=== PATIENT | female | born 1985 | race Caucasian/White ===

== ENCOUNTER 2020-01-27 16:55 | Inpatient (IN) | payer OTHER, MEDICAID ==
[~2020-01-27] VITALS: Ht 152.4 cm; Wt 71.7 kg
[2020-01-27] MEDS ORDERED: ONDANSETRON HCL 4MG/2ML INJ IV STA (17:00)
[2020-01-27 17:42] LABS: HEMATOCRIT. 22.3 % (36.0-48.0); HEMOGLOBIN. 7.4 g/dL (12.0-16.0); MEAN CORPUSCULAR HEMOGLOBIN 31.5 pg (28.0-32.0); MEAN CORPUSCULAR VOLUME 95.8 fL (81.0-99.0); MEAN PLATELET VOLUME 7.9 fl (7.4-10.4); PLATELET 229 x1000/uL (130-400); RED BLOOD CELL COUNT 2.33 mill/uL (4.2-5.4)
[2020-01-27 17:46] LABS: CHLORIDE 100 mEq/L (98-107)
[2020-01-27 17:53] LABS: INR 1.5; PROTHROMBIN TIME 15.1 sec (9.6-11.0)
[2020-01-27 17:56] LABS: PLATELET ESTIMATE NORMAL
[2020-01-27 17:57] LABS: HCG SCREEN NEGATIVE
[2020-01-27] MEDS ORDERED: SODIUM BICARBONATE 8.4% 1 MEQ/ML 50ML SYR IV ONE (18:15)
[2020-01-27] MEDS ORDERED: DEXTROSE 50% WATER 50ML SYRINGE IV ONE (18:15)
[2020-01-27] MEDS ORDERED: INSULIN REGULAR (HUMULIN R) 300UNITS/3ML IV ONE (18:15)
[2020-01-27] MEDS ORDERED: CALCIUM GLUCONATE 1,000 MG in DEXT 5% WATER 100 ML IV ONE (18:15)
[2020-01-27] MEDS ORDERED: HYDRALAZINE 20MG/ML VIAL IV ONE (18:45)
[2020-01-27] MEDS ORDERED: ALBUTEROL (0.083%) 2.5MG/3ML NEB HHN ONE (19:00)
[2020-01-27 21:40] VITALS: BP 198/126
[2020-01-27 22:00] VITALS: BP 198/126
[2020-01-27] MEDS ORDERED: MAGNESIUM/ALUMINUM HYDROXIDE/SIMETHICONE 30ML UDC PO PRN (22:00)
[2020-01-27] MEDS ORDERED: CLONIDINE 0.1MG TABLET PO PRN (22:00)
[2020-01-27] MEDS ORDERED: DOCUSATE SODIUM 100MG CAPSULE PO PRN (22:00)
[2020-01-27] MEDS ORDERED: GUAIFENESIN 200MG/10ML SUGAR FREE UDC PO PRN (22:00)
[2020-01-27] MEDS ORDERED: ACETAMINOPHEN 325MG TABLET PO PRN (22:00)
[2020-01-27] MEDS ORDERED: ONDANSETRON HCL 4MG/2ML INJ IV PRN (22:00)
[2020-01-27] MEDS: AMLODIPINE 10MG TABLET PO SCH (23:25)
[2020-01-27] MEDS: LISINOPRIL 20MG TABLET PO SCH (23:26)
[2020-01-28] VITALS (8 sets, daily range): BP systolic 128–199; BP diastolic 85–127
[2020-01-28] MEDS ORDERED: KEPP500 MT (02:40)
[2020-01-28] MEDS ORDERED: LYR25 MT (02:40)
[2020-01-28] MEDS ORDERED: CARV3.1242 MT (02:44)
[2020-01-28] MEDS ORDERED: CLON0.1T MT (02:44)
[2020-01-28] MEDS ORDERED: TIOT18CA3 INH (02:44)
[2020-01-28] MEDS ORDERED: DIPH25CA83 MT (02:44)
[2020-01-28] MEDS ORDERED: FLUT1DIS2 INH (02:44)
[2020-01-28 07:04] LABS: CHLORIDE 97 mEq/L (98-107)
[2020-01-28 07:15] LABS: BASOPHILS % 1.3 % (0.0-2.0); EOSINOPHILS % 0.6 % (0.0-5.0); LYMPHOCYTES % 9.6 % (20.0-50.0); MEAN CORPUSCULAR HEMOGLOBIN 31.3 pg (28.0-32.0); MEAN CORPUSCULAR VOLUME 92.8 fL (81.0-99.0); MEAN PLATELET VOLUME 8.3 fl (7.4-10.4); NEUTROPHILS % 81.5 % (40.0-76.0); PLATELET 187 x1000/uL (130-400); RED BLOOD CELL COUNT 2.14 mill/uL (4.2-5.4); RED CELL DISTRIBUTION WIDTH 16.8 % (11.6-14.6)
[2020-01-28] MEDS: LISINOPRIL 20MG TABLET PO SCH (08:07)
[2020-01-28] MEDS: AMLODIPINE 10MG TABLET PO SCH (08:07)
[2020-01-28] MEDS: ENOXAPARIN 30MG/0.3ML SYR SUBCUT SCH (08:08)
[2020-01-28 09:42] LABS: HEMATOCRIT. 19.9 % (36.0-48.0); HEMOGLOBIN. 6.7 g/dL (12.0-16.0)
[2020-01-28] MEDS ORDERED: ALBUTEROL (0.083%) 2.5MG/3ML NEB HHN PRN (11:45)
[2020-01-28] MEDS: PREGABALIN 25MG CAPSULE PO SCH (17:22)
[2020-01-28] MEDS: LEVETIRACETAM 500MG TABLET PO SCH (17:22)
[2020-01-28] MEDS: DIPHENHYDRAMINE 50MG/ML VIAL IV PRN ×2 (17:28→21:35)
[2020-01-28] MEDS: CARVEDILOL 3.125 MG TABLET PO SCH (21:35)
[2020-01-29] VITALS (7 sets, daily range): BP systolic 131–168; BP diastolic 73–104
[2020-01-29] MEDS: DIPHENHYDRAMINE 50MG/ML VIAL IV PRN ×2 (01:45→06:08)
[2020-01-29] MEDS: HYDROCODONE/ACETAMINOPHEN 5/325MG TABLET PO PRN ×2 (03:32→15:31)
[2020-01-29 08:00] LABS: BASOPHILS % 1.7 % (0.0-2.0); EOSINOPHILS % 8.6 % (0.0-5.0); HEMATOCRIT. 21.4 % (36.0-48.0); HEMOGLOBIN. 7.2 g/dL (12.0-16.0); LYMPHOCYTES % 14.7 % (20.0-50.0); MEAN CORPUSCULAR HEMOGLOBIN 31.3 pg (28.0-32.0); MEAN CORPUSCULAR VOLUME 92.6 fL (81.0-99.0); MEAN PLATELET VOLUME 8.2 fl (7.4-10.4); PLATELET 231 x1000/uL (130-400); RED BLOOD CELL COUNT 2.31 mill/uL (4.2-5.4); RED CELL DISTRIBUTION WIDTH 16.8 % (11.6-14.6)
[2020-01-29] MEDS: LEVETIRACETAM 500MG TABLET PO SCH ×2 (08:14→17:05)
[2020-01-29] MEDS: PREGABALIN 25MG CAPSULE PO SCH ×2 (08:14→17:05)
[2020-01-29] MEDS: LISINOPRIL 20MG TABLET PO SCH (08:17)
[2020-01-29] MEDS: CARVEDILOL 3.125 MG TABLET PO SCH (08:17)
[2020-01-29] MEDS: ENOXAPARIN 30MG/0.3ML SYR SUBCUT SCH (08:17)
[2020-01-29] MEDS: AMLODIPINE 10MG TABLET PO SCH (09:00)
[2020-01-29] MEDS: HYDROXYZINE 25MG TABLET PO PRN ×2 (11:01→16:59)
[2020-01-29] MEDS ORDERED: ZOLPIDEM TARTRATE 5MG TABLET PO PRN (21:00)
== END 2020-01-29 18:10 | disposition home or self-care (01) | DRG 291 ==
LOC: ER 16:55 → EDBEDREQTM 18:16 → EDBEDREQSVC 18:16 → EDBEDREQ 18:16 → 5EST 18:59 → EDBEDREQ 19:04 → EDBEDREQTM 19:04 → ENRESERV 20:26 → 5EST 22:17
PROVIDERS: ADMIT Hospitalist; ATTEND Hospitalist
PROC: 5A1D70Z Performance of Urinary Filtration, Intermittent, Less than 6 Hours Per Day (ICD-10-PCS; 2020-01-27)
PROC: 30233N1 Transfusion of Nonautologous Red Blood Cells into Peripheral Vein, Percutaneous Approach (ICD-10-PCS; principal; 2020-01-29)
PROC: 5A1D70Z Performance of Urinary Filtration, Intermittent, Less than 6 Hours Per Day (ICD-10-PCS; 2020-01-29)
DX: I13.2 Hypertensive heart and chronic kidney disease with heart failure and with stage 5 chronic kidney disease, or end stage renal disease (principal); I50.33 Acute on chronic diastolic (congestive) heart failure; N18.6 End stage renal disease; E44.0 Moderate protein-calorie malnutrition; E87.5 Hyperkalemia; M79.7 Fibromyalgia; D63.1 Anemia in chronic kidney disease; M06.9 Rheumatoid arthritis, unspecified; Z88.6 Allergy status to analgesic agent; Z88.0 Allergy status to penicillin; Z99.2 Dependence on renal dialysis; Z68.30 Body mass index [BMI] 30.0-30.9, adult; I69.30 Unspecified sequelae of cerebral infarction
CPT/HCPCS: 36415; 71045; 80048; 80053; 84132; 84484; 84703; 85025; 86850; 86900; 86920; 93005; 93970; 94640; 99291; J0360; J0610; J1200; J1650; J1815; J2405; J3490; J7060; P9016

== ENCOUNTER 2021-07-01 11:07 | Inpatient (IN) | payer BC, MEDICAID ==
[2021-07-01] VITALS (9 sets, daily range): BP systolic 137–174; BP diastolic 69–114
[~2021-07-01] VITALS: Ht 167.6 cm; Wt 113.9 kg
[~2021-07-01 11:07] MED LIST: CARV3.1242 MT; CLON0.1T MT; DIPH25CA83 MT; FLUT1DIS2 INH; KEPP500 MT; LYR25 MT; TIOT18CA3 INH
[2021-07-01] MEDS ORDERED: ASPIRIN 81MG TABLET PO ONE (12:00)
[2021-07-01 13:40] LABS: MEAN CORPUSCULAR HEMOGLOBIN 29.3 pg (28.0-32.0); PLATELET 368 x1000/uL (130-400); RED BLOOD CELL COUNT 1.72 mill/uL (4.2-5.4); RED CELL DISTRIBUTION WIDTH 16.7 % (11.6-14.6)
[2021-07-01 13:46] LABS: HEMATOCRIT. 15.8 % (36.0-48.0)
[2021-07-01 13:49] LABS: CHLORIDE 99 mEq/L (98-107)
[2021-07-01] MEDS ORDERED: CALCIUM CHLORIDE 1GM/10ML SYR IV ONE (14:30)
[2021-07-01] MEDS ORDERED: INSULIN REGULAR (HUMULIN R) 300UNITS/3ML VIAL IV ONE (14:30)
[2021-07-01] MEDS ORDERED: SODIUM BICARBONATE 8.4% 1 MEQ/ML 50ML SYR IV ONE (14:30)
[2021-07-01] MEDS ORDERED: DEXTROSE 50% WATER 50ML SYRINGE IV ONE (14:30)
[2021-07-01] MEDS ORDERED: DIPHENHYDRAMINE 50MG/ML VIAL IV PRN (14:45)
[2021-07-01] MEDS ORDERED: CLONIDINE 0.1MG TABLET PO PRN (14:45)
[2021-07-01] MEDS ORDERED: ACETAMINOPHEN 325MG TABLET PO PRN (14:45)
[2021-07-01 15:20] LABS: PLATELET ESTIMATE NORMAL
[2021-07-01] MEDS ORDERED: PANTOPRAZOLE 80 MG in SODIUM CHLORIDE 0.9% 100 ML IV SCH (16:00)
[2021-07-01 16:29] LABS: TOTAL IRON BINDING CAPACITY 172 ug/dL (250-450)
[2021-07-01 16:46] LABS: FOLIC ACID (FOLATE) SERUM >20 ng/mL ng/mL (>5.38)
[2021-07-01 16:56] LABS: VITAMIN B12 SERUM 1649 pg/mL (211-911)
[2021-07-01] MEDS: ONDANSETRON HCL 4MG/2ML INJ IV PRN (17:23)
[2021-07-01] MEDS ORDERED: PANTOPRAZOLE SODIUM 40 MG/VIAL IV ONE (17:42)
[2021-07-01] MEDS ORDERED: MANNITOL 12.5G (25%) VIAL 50ML IV NR (21:00)
[2021-07-01] MEDS: SUCRALFATE 1 G/10 ML UDC PO SCH (21:00)
[2021-07-02] VITALS (9 sets, daily range): BP systolic 121–154; BP diastolic 75–97
[2021-07-02 00:55] LABS: HEMATOCRIT 23.6 % (36.0-48.0); HEMOGLOBIN 7.7 g/dL (12.0-16.0)
[2021-07-02] MEDS: SUCRALFATE 1 G/10 ML UDC PO SCH ×3 (07:30→14:12)
[2021-07-02] MEDS: SIMETHICONE 80MG TABLET CHEW PO SCH ×2 (09:00→14:12)
[2021-07-02] MEDS ORDERED: PANTOPRAZOLE SODIUM 40 MG/VIAL IV SCH (09:00)
[2021-07-02 09:03] LABS: MEAN CORPUSCULAR HEMOGLOBIN 30.2 pg (28.0-32.0); MEAN CORPUSCULAR VOLUME 87.9 fL (81.0-99.0); MEAN PLATELET VOLUME 9.3 fl (7.4-10.4); PLATELET 387 x1000/uL (130-400); RED BLOOD CELL COUNT 2.13 mill/uL (4.2-5.4); RED CELL DISTRIBUTION WIDTH 16.3 % (11.6-14.6)
[2021-07-02 09:09] LABS: HEMATOCRIT. 18.7 % (36.0-48.0); HEMOGLOBIN. 6.4 g/dL (12.0-16.0)
[2021-07-02] MEDS ORDERED: HYDROMORPHONE HCL/PF 2MG/ML CPJ IV PRN (09:30)
[2021-07-02 10:00] LABS: CHLORIDE 100 mEq/L (98-107)
[2021-07-02] MEDS ORDERED: DESMOPRESSIN ACETATE 4MCG/ML AMP IV ONE (10:45)
[2021-07-02 11:24] LABS: PLATELET ESTIMATE NORMAL
[2021-07-02] MEDS ORDERED: DEXTROSE 5% IV SCH (12:00)
[2021-07-02] MEDS ORDERED: DESMOPRESSIN ACETATE IV SCH (12:00)
[2021-07-02] MEDS ORDERED: WATER IV SCH (12:00)
[2021-07-02 12:48] LABS: HEPATITIS B SURFACE ANTIGEN NEGATIVE
[2021-07-02 13:14] LABS: HEMATOCRIT 18.7 % (36.0-48.0); HEMOGLOBIN 6.1 g/dL (12.0-16.0)
[2021-07-02 13:23] LABS: INR 1.3; PARTIAL THROMBOPLASTIN TIME 40.2 sec (23.4-31.0)
[2021-07-02] MEDS: ONDANSETRON HCL 4MG/2ML INJ IV PRN (14:24)
[2021-07-02] MEDS ORDERED: NALOXONE HCL 0.4MG/ML VIAL IV PRN (22:45)
== END 2021-07-02 19:00 | disposition left against medical advice (07) | DRG 640 ==
LOC: ER 11:07 → 5EST 14:22 → EDBEDREQSVC 14:35 → EDBEDREQ 14:35 → ENRESERV 15:52
PROVIDERS: ADMIT Internal Medicine; ATTEND Internal Medicine
PROC: 30233N1 Transfusion of Nonautologous Red Blood Cells into Peripheral Vein, Percutaneous Approach (ICD-10-PCS; principal; 2021-07-01)
DX: E87.5 Hyperkalemia (principal); N18.6 End stage renal disease; J96.01 Acute respiratory failure with hypoxia; I13.2 Hypertensive heart and chronic kidney disease with heart failure and with stage 5 chronic kidney disease, or end stage renal disease; K92.0 Hematemesis; Z68.41 Body mass index [BMI] 40.0-44.9, adult; R71.0 Precipitous drop in hematocrit; E66.9 Obesity, unspecified; I50.9 Heart failure, unspecified; M32.14 Glomerular disease in systemic lupus erythematosus; R04.0 Epistaxis; Z53.29 Procedure and treatment not carried out because of patient's decision for other reasons; Z86.73 Personal history of transient ischemic attack (TIA), and cerebral infarction without residual deficits; Z87.11 Personal history of peptic ulcer disease; Z99.2 Dependence on renal dialysis; Z88.0 Allergy status to penicillin; Z88.5 Allergy status to narcotic agent; Z88.8 Allergy status to other drugs, medicaments and biological substances
CPT/HCPCS: 36415; 71045; 76700; 80048; 80053; 82607; 82746; 83540; 83550; 83880; 84132; 84443; 84484; 85014; 85018; 85025; 85044; 85384; 86705; 86709; 86803; 86850; 86900; 86920; 87340; 87426; 93005; 93976; 99291; C9113; J1170; J1815; J2150; J2405; J2597; J3490; J7040; J7050; J7060; P9016